=== PATIENT | male | born 1995 | race Caucasian/White ===

== ENCOUNTER 2019-10-29 10:33 | Emergency (ER) | payer OTHER ==
[2019-10-29 10:43] VITALS: BMI 27.4
--- NOTE | 2019-10-29 10:43 | PDOC ---
History of Present Illness <Ashleigh Santiagoan - Last Filed: 10/29/19 15:08> - General History Source: Patient Exam Limitations: No Limitations - History of Present Illness Initial Comments: 10/29/19 11:27 24y previously healthy M presenting w vomiting, diarrhea, ABD pain. 6d ago sudden onset fevers/chills, non productive cough, nausea/vomiting (2x w blood), chest pain w vomiting, diarrhea (1x blood, last BM yesterday), diffuse abdominal pain, poor appetite. Denies past AB surgery, alcohol/smoking/illicit drugs, recent antibiotic use or travel. Denies urinary symptoms. <Perez White - Last Filed: 10/29/19 15:31> - General Chief Complaint: Vomiting/Diarrhea Stated Complaint: NAUSEA AND VOMITING Time Seen by Provider: 10/29/19 10:43 Past History <Blayne Santiago - Last Filed: 10/29/19 15:08> - Travel Traveled outside of the country in the last 30 days: No Close contact w/someone who was outside of country & ill: No - Past Medical History COPD: No - Psycho Social/Smoking Cessation Hx Smoking History: Never smoked Have you smoked in the past 12 months: No Information on smoking cessation initiated: No Hx Alcohol Use: No Drug/Substance Use Hx: No Substance Use Type: Marijuana <Perez White - Last Filed: 10/29/19 15:31> - Past Medical History Allergies/Adverse Reactions: Allergies Allergy/AdvReac Type Severity Reaction Status Date / Time amoxicillin Allergy Verified 10/29/19 10:42 Penicillins Allergy Verified 10/29/19 10:42 Home Medications: Ambulatory Orders Metronidazole [Flagyl] 500 mg PO TID 7 Days #21 capsule 10/29/19 levoFLOXacin [Levaquin] 750 mg PO DAILY 7 Days #7 tab 10/29/19 Review of Systems - Review of Systems Able to Perform ROS?: Yes Constitutional: Yes: Chills, Fever HEENTM: No: Eye Pain, Recent change in vision, Nose Pain, Throat Pain, Mouth Pain Respiratory: Yes: Cough. No: Shortness of Breath Cardiac (ROS): Yes: Chest Pain. No: Palpitations, Syncope ABD/GI: Yes: Diarrhea, Nausea, Poor Appetite, Vomiting. No: Abdominal Distended , Constipated : No: Burning, Dysuria, Hematuria Musculoskeletal: No: Back Pain, Joint Pain Integumentary: No: Bruising, Flushing, Lesions Neurological: No: Headache, Seizure, Tingling, Tremors Psychiatric: No: Anxiety, Depression Endocrine: No: Excessive Sweating, Flushing, Intolerance to Cold, Intolerance to Heat Hematologic/Lymphatic: No: Anemia <Perez White - Last Filed: 10/29/19 15:31> *Physical Exam - Vital Signs Last Vital Signs Temp Pulse Resp BP Pulse Ox 99.0 F 94 H 17 124/76 100 10/29/19 13:43 10/29/19 13:43 10/29/19 13:43 10/29/19 13:43 10/29/19 13:43 <OuBlayne - Last Filed: 10/29/19 15:08> - Vital Signs Last Vital Signs Temp Pulse Resp BP Pulse Ox 99.9 F H 120 H 16 134/82 0 L 10/29/19 10:40 10/29/19 10:40 10/29/19 10:40 10/29/19 10:40 10/29/19 10:40 - Physical Exam General Appearance: Yes: Nourished, Appropriately Dressed, Mild Distress HEENT: positive: EOMI, ANA ROSA, Normal Voice, Hearing Grossly Normal. negative: Scleral Icterus (R), Scleral Icterus (L), Nasal Congestion, Rhinorrhea Respiratory/Chest: positive: Lungs Clear, Normal Breath Sounds. negative: Chest Tender, Respiratory Distress, Crackles, Rales, Rhonchi, Stridor, Wheezing Cardiovascular: positive: Regular Rhythm, S1, S2, Tachycardia. negative: Edema , Murmur Gastrointestinal/Abdominal: positive: Normal Bowel Sounds, Tender (moderate tender diffuse most RLQ), Flat, Soft, Guarding, Rebound. negative: Organomegaly , Hernia, Mass Rectal Exam: positive: normal exam, normal rectal tone. negative: melena, hemorrhoids Musculoskeletal: negative: CVA Tenderness (R), CVA Tenderness (L) Extremity: positive: Delayed Capillary Refill Integumentary: positive: Normal Color, Dry. negative: Rash, Swelling Neurologic: positive: electronic gluer II-XII NML intact, Fully Oriented, Alert, Normal Response, Responsive. negative: Sensory Deficit, Confused, Disoriented <Perez White - Last Filed: 10/29/19 15:31> ED Treatment Course - LABORATORY CBC & Chemistry Diagram: 10/29/19 11:15 10/29/19 11:15 - ADDITIONAL ORDERS Additional order review: Laboratory Results 10/29/19 10/29/19 10/29/19 11:54 11:15 11:15 PT with INR INR Sodium 137 Potassium 3.5 Chloride 102 Carbon Dioxide 27 Anion Gap 8 BUN 12.8 Creatinine 1.3 Est GFR (CKD-EPI)AfAm 88.51 Est GFR (CKD-EPI)NonAf 76.37 Random Glucose 109 H Lactic Acid Calcium 8.8 Total Bilirubin 0.9 AST 29 ALT 25 Alkaline Phosphatase 86 Troponin I < 0.02 Total Protein 8.0 Albumin 3.4 Lipase 69 L Stool Occult Blood Negative Blood Type Antibody Screen 10/29/19 10/29/19 10/29/19 11:15 11:15 11:15 PT with INR 15.30 H INR 1.29 H Sodium Potassium Chloride Carbon Dioxide Anion Gap BUN Creatinine Est GFR (CKD-EPI)AfAm Est GFR (CKD-EPI)NonAf Random Glucose Lactic Acid 1.4 Calcium Total Bilirubin AST ALT Alkaline Phosphatase Troponin I Total Protein Albumin Lipase Stool Occult Blood Blood Type O POSITIVE Antibody Screen Negative 10/29/19 11:15 RBC 4.93 MCV 84.4 MCHC 32.0 RDW 13.9 MPV 8.6 Neutrophils % 89.5 H Lymphocytes % 7.2 L Monocytes % 3.1 L Eosinophils % 0.0 Basophils % 0.2 - Medications Given in the ED: ED Medications Discontinued Medications Generic Name Dose Route Start Last Admin Trade Name Freq PRN Reason Stop Dose Admin Acetaminophen 1,000 mg 10/29/19 11:10 10/29/19 11:28 Ofirmev Injection - IVPB 10/29/19 11:11 1,000 mg ONCE ONE Administration Pantoprazole Sodium 40 mg/ 100 mls @ 200 mls/hr 10/29/19 12:13 10/29/19 12:45 Sodium Chloride IVPB 10/29/19 12:42 200 mls/hr ONCE ONE Administration Lactated Ringer's 1,000 ml 10/29/19 13:15 10/29/19 13:33 Lactated Ringers Solution IV 10/29/19 13:16 1,000 ml ONCE ONE Administration Metronidazole 500 mg 10/29/19 14:46 10/29/19 14:59 Flagyl - PO 10/29/19 14:47 500 mg ONCE ONE Administration Ondansetron HCl 4 mg 10/29/19 11:10 10/29/19 11:28 Zofran Injection IVPUSH 10/29/19 11:11 4 mg ONCE ONE Administration Sodium Chloride 2,000 ml 10/29/19 11:10 10/29/19 11:28 Normal Saline - IV 10/29/19 11:11 2,000 ml ONCE ONE Administration <Blayne Santiago - Last Filed: 10/29/19 15:08> - LABORATORY CBC & Chemistry Diagram: 10/29/19 11:15 10/29/19 11:15 <Perez White - Last Filed: 10/29/19 15:31> Medical Decision Making - Medical Decision Making 10/29/19 11:45 CT A/P mild diffuse colitis EKG sinus tachycardia HR 116, QTc 400, no ST changes CXR shows R basilar atelectasis, no PTX/PNA rectal exam - normal rectal tone, no gross bleeding or hemorrhoids WBC 15 w left shift --- 24y previously healthy M presenting w 6d cough, vomiting, diarrhea, diffuse ABD pain d/t mild diffuse colitis on CT A/P and possible early PNA infiltrates. Low concern for ACS (neg trop, no ST changes EKG) vs flu (neg) vs rectal bleed (- blood) vs pancreatitis (normal lipase) vs UTI (clean UA) Given tylenol, 3L NS/LR, zofran, protonix, levaquin, flagyl. Tolerated PO fluids DC w levaquin, flagyl, PCP f/u <Perez White - Last Filed: 10/29/19 15:31> Discharge <PamelaBlayne - Last Filed: 10/29/19 15:08> - Discharge Information Problems reviewed: Yes - Admission No <Perez White - Last Filed: 10/29/19 15:31> - Discharge Information Clinical Impression/Diagnosis: Colitis Pneumonia Qualifiers: Pneumonia type: due to unspecified organism Laterality: bilateral Lung location : lower lobe of lung Qualified Code(s): J18.9 - Pneumonia, unspecified organism Condition: Improved Disposition: HOME - Additional Discharge Information Prescriptions: levoFLOXacin [Levaquin] 750 mg PO DAILY 7 Days #7 tab Metronidazole [Flagyl] 500 mg PO TID 7 Days #21 capsule - Follow up/Referral Referrals: Jean Segura MD [Primary Care Provider] - Jasper Harp MD [Staff Physician] - - Patient Discharge Instructions Patient Printed Discharge Instructions: DI for Colitis Additional Instructions: You were seen for abdominal pain and vomiting. Your labs and imaging shows that your bowels are inflammed. You were given medication and fluids Please take the prescribed Levaquin and Flagyl as directed. You can take tylenol if you have pain or fevers Follow up with your primary care doctor regarding this visit. You should also follow up with a [employer] for further evaluation of your colitis. Call the number provided to make an appointment. Come back if you continue to vomit, worsening pain, or feel lightheaded
[2019-10-29] MEDS ORDERED: ACETAMINOPHEN INJECTION 100 ML IVPB ONE (11:01)
[2019-10-29] MEDS ORDERED: ONDANSETRON 4 MG/2 ML VIAL ONE (11:01)
[2019-10-29] MEDS ORDERED: ACETAMINOPHEN 1000 MG/100 ML VIAL (NON FORMULARY) IVPB ONE (11:10)
[2019-10-29] MEDS ORDERED: SODIUM CHLORIDE 0.9% 500 ML INFUS.BAG IV ONE (11:10)
[2019-10-29] MEDS ORDERED: ONDANSETRON 4 MG/2 ML VIAL IVPUSH ONE (11:10)
[2019-10-29 11:36] LABS: BASO % 0.2 % (0-2.0); HEMATOCRIT 41.6 % (35.4-49); HEMOGLOBIN 13.3 GM/dL (11.7-16.9); LYMPH % 7.2 % (8-40); MEAN CELL VOLUME 84.4 fl (80-96); MEAN PLT VOLUME 8.6 fl (7.5-11.1); MONO % 3.1 % (3.8-10.2); NEUT % 89.5 % (42.8-82.8); PLATELET COUNT 313 K/MM3 (134-434); RBC 4.93 M/mm3 (4.00-5.60); RDW 13.9 % (11.9-15.9); WHITE BLOOD COUNT 15.3 K/mm3 (4.0-10.0)
[2019-10-29 11:53] LABS: INR 1.29 (0.83-1.09); PROTHROMBIN TIME (PATIENT) 15.3 SEC (9.7-13.0)
[2019-10-29 12:05] LABS: ALBUMIN 3.4 g/dl (3.4-5.0); BILIRUBIN,TOTAL 0.9 mg/dL (0.2-1); BLOOD UREA NITROGEN 12.8 mg/dL (7-18); CALCIUM 8.8 mg/dL (8.5-10.1); CREATININE 1.3 mg/dL (0.55-1.3); POTASSIUM 3.5 mmol/L (3.5-5.1)
--- NOTE | 2019-10-29 12:06 | PDOC ---
Documentation entered by Donita Smith SCRIBE, acting as scribe for Blayne Santiago MD. Blayne Santiago MD: This documentation has been prepared by the rubioibeLuis Maria, SCRIBE, under my direction and personally reviewed by me in its entirety. I confirm that the documentation accurately reflects all work, treatment, procedures, and medical decision making performed by me. Attending Attestation - Resident Resident Name: ChristopherPerez - ED Attending Attestation I have performed the following: I have examined & evaluated the patient, The case was reviewed & discussed with the resident, I agree w/resident's findings & plan, Exceptions are as noted - HPI HPI: 10/29/19 11:31 Patient is a 24 year old male with no significant PMH who presents to the ED with 6 days of vomiting, diarrhea and abdominal pain. Patient states he vomits every 20 minutes and is unable to keep down any food or water. Pt also reports several episodes of watery brown diarrhea. He noticed blood streaks in his stool 2 days ago but has not had any blood recently. Patient also reports subjective fevers, chills and non productive cough. He denies any recent dysuria, frequency, urgency or hematuria. He denies any recent travel or antibiotic use. Allergies: Amoxicillin, Penicillin Past surgical history: None reported. - Physicial Exam PE: 10/29/19 11:31 "GENERAL: Awake, alert, and fully oriented, in no acute distress. HEAD: No signs of trauma EYES: PERRLA, EOMI, sclera anicteric, conjunctiva clear ENT: Auricles normal inspection, hearing grossly normal, nares patent, oropharynx clear without exudates. Moist mucosa NECK: Nontender, no stepoffs, Normal ROM, supple, no lymphadenopathy, JVD, or masses LUNGS: Breath sounds equal, clear to auscultation bilaterally. No wheezes, and no crackles HEART: Regular rate and rhythm, normal S1 and S2, no murmurs, rubs or gallops ABDOMEN: + diffuse TTP, normoactive bowel sounds. No guarding, no rebound. No masses EXTREMITIES: Normal range of motion, no edema. No clubbing or cyanosis. No cords, erythema, or tenderness NEUROLOGICAL: Cranial nerves II through XII intact. 5/5 strength and sensation in all extremities, Normal speech, normal gait, normal cerebellar function SKIN: Warm, Dry, normal turgor, no rashes or lesions noted. - Medical Decision Making 10/29/19 12:08 24 M with abdominal pain, N+V+D. - Labs - CTAP - IVF, tylenol, GI cocktail 10/29/19 15:[address] shows possible colitis, + early infiltrate Will tx for colitis as well as PNA with levaquin + flagyl Pt reassessed - tolerating PO fluids Pt is well appearing, with normal vitals. Clinically stable for DC at this time. I discussed the physical exam findings, ancillary test results and final diagnoses with the patient. I answered all of the patient's questions. The patient was satisfied with the care received and felt comfortable with the discharge plan and treatment plan. The patient agrees to follow up with the primary care physician within 24-72 hours.
[2019-10-29] MEDS ORDERED: PANTOPRAZOLE SODIUM 40 MG in SODIUM CHLORIDE 100 ML IVPB ONE (12:13)
[2019-10-29] MEDS ORDERED: PANTOPRAZOLE SODIUM 40 MG/100 ML BAG IVPB ONE (12:42)
[2019-10-29] MEDS ORDERED: LACTATED RINGERS SOLUTION 1000 ML INFUS.BAG IV ONE (13:15)
[2019-10-29 13:43] VITALS: BP 124/76; PULSE 94; TEMP 99
[2019-10-29] MEDS ORDERED: metroNIDAZOLE 250 MG TABLET PO ONE (14:46)
[2019-10-29] MEDS ORDERED: metroNIDAZOLE 250 MG TABLET ONE (14:58)
[2019-10-29] MEDS ORDERED: levoFLOXacin 750 MG TABLET PO ONE (15:04)
[2019-10-29 15:21] LABS: PH,URINE 6.5 (5.0-8.0); URINE APPEARANCE CLEAR; URINE BILIRUBIN NEGATIVE (NEGATIVE); URINE COLOR YELLOW; URINE GLUCOSE (UA) NEGATIVE (NEGATIVE); URINE KETONE NEGATIVE (NEGATIVE); URINE PROTEIN 30 (NEGATIVE)
[2019-10-29 15:22] LABS: URINE LEUK ESTERASE NEGATIVE (NEGATIVE); URINE NITRITE NEGATIVE (NEGATIVE); URINE RBC 0.7 /hpf (0-4); URINE UROBILINOGEN 1 mg/dL (0.2-1.0); URINE WBC 1.2 /hpf (0-5)
[2019-10-29 15:23] LABS: EPI CELLS 1.5 /HPF (0-5/HPF); HYALINE CASTS 2.58 /lpf (0-8); URINE BACTERIA 0.7 /hpf (NEGATIVE)
--- NOTE | 2019-10-30 10:30 | EKG ---
Test Reason : Blood Pressure : / mmHG Vent. Rate : 116 BPM Atrial Rate : 116 BPM P-R Int : 126 ms QRS Dur : 086 ms QT Int : 288 ms P-R-T Axes : 066 063 026 degrees QTc Int : 400 ms SINUS TACHYCARDIA OTHERWISE NORMAL ECG NO PREVIOUS ECGS AVAILABLE Confirmed by ELIDIA KANG MD ([id number]) on 10/30/2019 10:29:32 AM Referred By: Confirmed By:ELIDIA KANG MD
[2019-10-30] MEDS ORDERED: levoFLOXacin 750 MG TABLET PO ONE (14:46)
== END 2019-10-29 15:59 | disposition home or self-care (01) ==
LOC: JER 10:33
PROC: 3E033GC Introduction of Other Therapeutic Substance into Peripheral Vein, Percutaneous Approach (ICD-10-PCS; principal; 2019-10-29)
PROC: 3E033NZ Introduction of Analgesics, Hypnotics, Sedatives into Peripheral Vein, Percutaneous Approach (ICD-10-PCS; 2019-10-29)
PROC: 3E033GC Introduction of Other Therapeutic Substance into Peripheral Vein, Percutaneous Approach (ICD-10-PCS; 2019-10-29)
DX: K52.9 Noninfective gastroenteritis and colitis, unspecified (principal); J18.9 Pneumonia, unspecified organism; Z88.0 Allergy status to penicillin
CPT/HCPCS: 36415; 71045-TC-FY; 74177-TC; 80053; 81003; 82272; 83605; 83690; 84484; 85025; 85610; 86850; 86900; 86901; 87040; 87086; 87804; 93005; 93010; 99283-25; J0131; Q9967

== ENCOUNTER 2021-06-17 14:53 | Emergency (ER) | payer OTHER ==
[2021-06-17 15:03] VITALS: BP 118/81; PULSE 98; TEMP 98; BMI 28.8
[2021-06-17] MEDS ORDERED: LACTATED RINGERS SOLUTION 1000 ML INFUS.BAG IV ONE (15:24)
[2021-06-17 17:01] LABS: BASO % 0.5 % (0-2.0); EOS % 0.3 % (0-4.5); HEMOGLOBIN 13.4 GM/dL (11.7-16.9); LYMPH % 7.6 % (8-40); MCH 28.7 pg (25.7-33.7); MCHC 33.5 g/dl (32.0-35.9); MEAN CELL VOLUME 85.8 fl (80-96); MEAN PLT VOLUME 7.6 fl (7.5-11.1); MONO % 9.2 % (3.8-10.2); NEUT % 82.4 % (42.8-82.8); PLATELET COUNT 231 10^3/uL (134-434); RBC 4.66 M/mm3 (4.00-5.60); RDW 14.7 % (11.9-15.9); WHITE BLOOD COUNT 10.3 K/mm3 (4.0-10.0)
[2021-06-17 17:21] LABS: CALCIUM 8.5 mg/dL (8.5-10.1)
[2021-06-17 17:22] LABS: ALBUMIN 3.9 g/dl (3.4-5.0); BLOOD UREA NITROGEN 13.7 mg/dL (7-18)
[2021-06-17 17:24] LABS: CREATININE 1.1 mg/dL (0.55-1.3)
[2021-06-17 17:26] LABS: BILIRUBIN,TOTAL 0.5 mg/dL (0.2-1)
[2021-06-17 17:27] LABS: TOT PROT 7.6 g/dl (6.4-8.2)
== END 2021-06-17 18:18 | disposition home or self-care (01) ==
LOC: JER 14:53
DX: U07.1 COVID-19 (principal); R53.81 Other malaise; R53.83 Other fatigue; R51.9 Headache, unspecified
CPT/HCPCS: 36415; 80053; 85025; 99284-25; C9803; U0003; U0005